=== PATIENT | female | born 1975 | race Hispanic/Latino ===

== ENCOUNTER 2021-02-06 09:57 | Emergency (ER) | payer BC, OTHER ==
[~2021-02-06] VITALS: Ht 167.6 cm; Wt 99.5 kg
[2021-02-06] MEDS ORDERED: IBUPROFEN 600 MG TAB PO STA (10:29)
[2021-02-06] MEDS ORDERED: CYCLOBENZAPRINE5 MG PO (12:41)
[2021-02-06] MEDS ORDERED: NAPROSYN500 MG PO (12:41)
== END 2021-02-06 12:52 | disposition home or self-care (01) ==
LOC: FSED 10:22
DX: S00.83XA Contusion of other part of head, initial encounter (principal); S13.4XXA Sprain of ligaments of cervical spine, initial encounter; S40.011A Contusion of right shoulder, initial encounter; M79.671 Pain in right foot; V43.62XA Car passenger injured in collision with other type car in traffic accident, initial encounter; Y92.488 Other paved roadways as the place of occurrence of the external cause; M54.9 Dorsalgia, unspecified; G89.29 Other chronic pain
CPT/HCPCS: 70450; 71045; 72125; 99284

== ENCOUNTER → 2022-03-06 | Outpatient (CLI) | payer BC ==
[~2022-03-06] MED LIST: CYCLOBENZAPRINE5 MG PO; NAPROSYN500 MG PO
== END ==
LOC: MAMMO 13:43
PROVIDERS: ATTEND Specialist
DX: Z12.31 Encounter for screening mammogram for malignant neoplasm of breast (principal)
CPT/HCPCS: 77067